=== PATIENT | female | born 1990 | race Two or more races ===

== ENCOUNTER 2024-09-22 07:57 | Outpatient (CLI) | payer BC ==
[2024-09-22 08:41] LABS: MEAN PLATELET VOLUME 7.7 FL (7.4-10.4); RED CELL DISTRIBUTION WIDTH 12.7 % (11.5-14.5)
[2024-09-22 09:05] LABS: CREATININE 0.78 MG/DL (0.40-0.90); TOTAL CARBON DIOXIDE 25.0 MMOL/L (24-32); eGFR 84 ML/MIN
== END 2024-09-22 23:59 | disposition home or self-care (01) ==
LOC: LAB 07:57
PROVIDERS: ATTEND Internal Medicine
DX: Z76.89 Persons encountering health services in other specified circumstances (principal)
CPT/HCPCS: 36415; 80053; 84436; 84443; 85025

== ENCOUNTER 2024-11-04 07:22 | Outpatient (CLI) | payer BC ==
[2024-11-05 11:26] LABS: ESTRADIOL 151.0 pg/mL (.); FSH, SERUM 2.9 mIU/mL (.); LUTEINIZING HORMONE 7.0 mIU/mL (.); PROLACTIN 40.7 ng/mL (4.8-33.4); TESTOSTERONE, SERUM 28 ng/dL (8-60)
== END 2024-11-04 23:59 | disposition home or self-care (01) ==
LOC: RAD 07:22
PROVIDERS: ATTEND Specialist
DX: N91.1 Secondary amenorrhea (principal); N95.1 Menopausal and female climacteric states
CPT/HCPCS: 36415; 82670; 83001; 83002; 83036; 84146; 84402; 84403; 84439; 84443

== ENCOUNTER 2024-11-04 09:25 | Outpatient (CLI) | payer BC | END 2024-11-04 23:59 | disposition home or self-care (01) | LOC: RAD 09:25 | PROVIDERS: ATTEND Internal Medicine | DX: B35.1 Tinea unguium (principal) | CPT/HCPCS: 87101 ==

== ENCOUNTER 2024-12-23 10:14 | Outpatient (CLI) | payer BC | END 2024-12-23 23:59 | disposition home or self-care (01) | LOC: RAD 10:14 | PROVIDERS: ATTEND Specialist | DX: R79.89 Other specified abnormal findings of blood chemistry (principal) | CPT/HCPCS: 36415; 84146 ==